=== PATIENT | male | born 1985 | race Native Hawaiian/Other Pacific Islander ===

== ENCOUNTER 2021-07-03 11:43 | Outpatient (CLI) | payer OTHER | END 2021-07-03 19:54 | disposition home or self-care (01) | LOC: NM 11:43 | PROVIDERS: ATTEND Physician Assistant | DX: R11.10 Vomiting, unspecified (principal); R19.7 Diarrhea, unspecified; R10.13 Epigastric pain; R10.11 Right upper quadrant pain | CPT/HCPCS: A9537 ==